=== PATIENT | male | born 1970 | race Caucasian/White ===

== ENCOUNTER 2018-07-04 17:40 | Emergency (ER) | payer OTHER ==
[~2018-07-04] VITALS: Ht 177.8 cm; Wt 102.7 kg
[2018-07-04 17:51] VITALS: Ht 177.8 cm; Wt 102.7 kg
[2018-07-04 18:27] LABS: BASOPHIL % 0.5 % (0-2); PLATELET COUNT 284 x10^3mcL (130-400); RED CELL DISTRIBUTION WIDTH 12.8 % (11.5-14.5)
[2018-07-04 18:36] LABS: CALCIUM 8.8 mg/dL (8.5-10.1); CARBON DIOXIDE 26.8 mmol/L (21-32); CHLORIDE SERUM 102 mmol/L (98-107); GFR1 > 60 mL/min; GLUCOSE SERUM 103 mg/dL (74-106); POTASSIUM SERUM 3.8 mmol/L (3.5-5.1); SODIUM SERUM 140 mmol/L (136-145)
[2018-07-04 18:49] LABS: ALBUMIN 3.6 g/dL (3.4-5.0); ALKALINE PHOSPHATASE 95 U/L (46-116); ALT/SGPT 32 U/L (16-63); AST/SGOT 19 U/L (15-37); BILIRUBIN TOTAL 0.3 mg/dL (0.20-1.00); T4(THYROXINE) 6.7 ug/dL (4.7-13.3); TOTAL PROTEIN, SERUM 7.5 g/dL (6.4-8.2)
[2018-07-04 19:22] VITALS: BP 106/61
== END 2018-07-04 19:22 | disposition home or self-care (01) ==
LOC: ED 17:40
PROVIDERS: Emergency Medicine
DX: R00.2 Palpitations (principal); K21.9 Gastro-esophageal reflux disease without esophagitis; G47.30 Sleep apnea, unspecified
CPT/HCPCS: 36415

== ENCOUNTER 2018-07-15 11:54 | Emergency (ER) | payer OTHER ==
[~2018-07-15] VITALS: Ht 177.8 cm; Wt 101.6 kg
[2018-07-15 11:56] VITALS: Ht 177.8 cm; Wt 101.6 kg
[2018-07-15 13:09] VITALS: BP 131/79
== END 2018-07-15 13:09 | disposition home or self-care (01) ==
LOC: ED 11:54
DX: R00.2 Palpitations (principal)

== ENCOUNTER 2019-07-25 14:57 | Emergency (ER) | payer OTHER ==
[~2019-07-25] VITALS: Ht 177.8 cm; Wt 106.1 kg
[2019-07-25 15:00] VITALS: Ht 177.8 cm; Wt 106.1 kg
[2019-07-25 15:46] LABS: BASOPHIL % 0.5 % (0-2); PLATELET COUNT 256 x10^3mcL (130-400)
[2019-07-25 15:47] LABS: microscopic required? NO
[2019-07-25 15:59] LABS: urine erythrocyte NEGATIVE (NEGATIVE)
[2019-07-25 16:00] LABS: CALCIUM 8.8 mg/dL (8.5-10.1); CARBON DIOXIDE 28.8 mmol/L (21-32); CHLORIDE SERUM 103 mmol/L (98-107); CREATININE SERUM 0.9 mg/dL (0.7-1.3); GFR1 > 60 mL/min; GLUCOSE SERUM 90 mg/dL (74-106); POTASSIUM SERUM 4.1 mmol/L (3.5-5.1); SODIUM SERUM 138 mmol/L (136-145)
[2019-07-25 16:08] LABS: AMPHETAMINE QUAL UR NONE DETECTED (See below)
[2019-07-25 16:12] LABS: ALBUMIN 3.7 g/dL (3.4-5.0); ALKALINE PHOSPHATASE 92 U/L (46-116); ALT/SGPT 38 U/L (16-63); AST/SGOT 21 U/L (15-37); BILIRUBIN TOTAL 0.4 mg/dL (0.20-1.00); LIPASE 154 IU/L (73-393); T4(THYROXINE) 5.7 ug/dL (4.7-13.3); TOTAL PROTEIN, SERUM 7.3 g/dL (6.4-8.2)
[2019-07-25 16:15] LABS: CHOLESTEROL 213 mg/dL (<200); HDL CHOLESTEROL 24 mg/dL (40-60)
[2019-07-25 16:43] VITALS: BP 111/76
== END 2019-07-25 17:59 | disposition home or self-care (01) ==
LOC: ED 14:57
PROVIDERS: Emergency Medicine
DX: R00.2 Palpitations (principal); E66.9 Obesity, unspecified; Z68.33 Body mass index [BMI] 33.0-33.9, adult
CPT/HCPCS: 36415; 83880; 85378; G0480

== ENCOUNTER → 2020-05-07 | Outpatient (CLI) | payer OTHER ==
[2020-05-07 11:26] LABS: ALBUMIN 3.8 g/dL (3.4-5.0); ALKALINE PHOSPHATASE 102 U/L (46-116); ALT/SGPT 28 U/L (16-63); AST/SGOT 20 U/L (15-37); BILIRUBIN TOTAL 0.5 mg/dL (0.20-1.00); CALCIUM 9.3 mg/dL (8.5-10.1); CARBON DIOXIDE 31.1 mmol/L (21-32); CHLORIDE SERUM 103 mmol/L (98-107); FREE T4 0.93 ng/dL (0.76-1.46); GFR1 > 60 mL/min; GLUCOSE SERUM 99 mg/dL (74-106); HDL CHOLESTEROL 36 mg/dL (40-60); POTASSIUM SERUM 4.4 mmol/L (3.5-5.1); SODIUM SERUM 137 mmol/L (136-145); TOTAL PROTEIN, SERUM 7.6 g/dL (6.4-8.2); TRIGLYCERIDES 101 mg/dL (<150)
[2020-05-07 12:05] LABS: CHOLESTEROL 215 mg/dL (<200)
[2020-05-07 12:26] LABS: BASOPHIL % 0.4 % (0-2); PLATELET COUNT 285 x10^3mcL (130-400); RED CELL DISTRIBUTION WIDTH 12.9 % (11.5-14.5)
== END | disposition home or self-care (01) ==
LOC: LB 10:33
PROVIDERS: ATTEND Family Medicine
DX: E78.5 Hyperlipidemia, unspecified (principal); Z76.89 Persons encountering health services in other specified circumstances; Z12.5 Encounter for screening for malignant neoplasm of prostate
CPT/HCPCS: 84153; 84439